=== PATIENT | female | born 1970 | race Asian ===

== ENCOUNTER 2017-10-01 15:47 | Emergency (ER) | payer OTHER ==
[2017-10-01] MEDS: MECLIZINE 12.5 MG TAB PO (18:07)
[2017-10-01] MEDS: IBUPROFEN 800 MG TAB PO (18:07)
== END 2017-10-01 19:06 | disposition home or self-care (01) ==
LOC: E/R 15:47
DX: R42 Dizziness and giddiness (principal)
CPT/HCPCS: 70450; 99284-25